=== PATIENT | female | born 1975 | race Asian ===

== ENCOUNTER 2023-12-19 20:08 | Outpatient (CLI) | payer OTHER | END 2023-12-19 23:59 | disposition critical access hospital (66) | LOC: EMS 20:08 | DX: R55 Syncope and collapse (principal) | CPT/HCPCS: A0425; A0427 ==

== ENCOUNTER 2023-12-19 20:48 | Emergency (ER) | payer OTHER ==
--- NOTE | 2023-12-19 20:48 | ED Physician Documentation ---
PD HPI SYNCOPE - Stated complaint Stated Complaint: SYNCOPE - History obtained from History obtained from: Patient, Family (spouse), EMS - History of Present Illness Witnessed: Witnessed - Additional information Additional information: AKIRA. HPI from EMS, patient, patient's spouse was in the ED at patient's bedside. Patient presents due to syncopal episode. Patient was seated at a table next to her at a local event when she had sudden onset of feeling unwell and nauseous. She then very rapidly developed visual changes Which she describes as everything appearing shades of yellow this was followed by generalized weakness, causing her to lean to her left side her was seated and thus he was able to keep her propped up. However, he says that, although slow to respond, she was answering questions appropriately. At that point, the patient and her decided to walk her outside, with much assistance, she was able to do so. Upon getting to a bench where the helped by her down, he noticed LOC lasting 3 to 5 seconds with generalized shaking. After no more than 5 seconds, she was again responding and, now that she was lying supine on the bench, rapidly returned to her baseline mental status. At no point did she have chest pain, palpitations. During this episode, she did have a brief period of generalized abdominal cramping. At this time, she says "I feel great". Her only symptoms at this time are mild generalized headache, mild "stiff neck" (per patient). She is otherwise asymptomatic. She has had similar episodes before bleeding to outpatient cardiac monitoring; per patient and 's description, it sounds like there were no diagnostic findings on that period of cardiac monitoring. Review of Systems Eyes: reports: Other (visual changes (color changes as per HPI)) Cardiac: reports: Reviewed and negative Respiratory: reports: Dyspnea (brief period of dyspnea during event, resolved) GI: reports: Abdominal Pain (brief period of abdominal cramping). denies: Nausea, Vomiting, Constipation, Diarrhea : denies: Now EGA Neurologic: reports: Generalized weakness, Syncope, Headache, LOC. denies: Focal weakness, Numbness, Head injury PD PAST MEDICAL HISTORY - Past Medical History Past Medical History: Yes [employer]: Breast cancer - Present Medications Home Medications: Ambulatory Orders Medication Instructions Recorded Confirmed No Known Home Medications 12/19/23 12/19/23 - Allergies Allergies/Adverse Reactions: Allergies Allergy/AdvReac Type Severity Reaction Status Date / Time unknown cancer med Allergy Unknown Uncoded 12/19/23 20:59 PD ED PE NORMAL - Vitals Vital signs reviewed: Yes - General General: Alert and oriented X 3, No acute distress, Well developed/nourished - HEENT HEENT: PERRL, EOMI - Neck Neck: Supple, no meningeal sign - Cardiac Cardiac: RRR, No murmur, No gallop, No rub - Respiratory Respiratory: No respiratory distress, Clear bilaterally - Abdomen Abdomen: Soft, Non tender - Neuro Neuro: Alert and oriented X 3, electrical assembler 2-12 intact, No motor deficit, No sensory deficit, Normal speech Eye Opening: Spontaneous Motor: Obeys Commands Verbal: Oriented GCS Score: 15 Results - Vitals Vitals: Vital Signs - 24 hr 12/19/23 12/19/23 20:50 23:04 Temperature 36.9 C Heart Rate 78 77 Respiratory 16 16 Rate Blood Pressure 123/71 121/86 H O2 Saturation 98 99 Oxygen O2 Source Room air - EKG (time done) No standard instances EKG releavant findings:: EKG personally interpreted by author of this note. Relevant findings are: Rate: Rate (enter#) (72) Rhythm: NSR [place]: Normal Intervals: Normal CA QRS: Normal Ischemia: Normal ST segments - Labs Labs: Laboratory Tests 12/19/23 12/19/23 12/19/23 21:12 21:12 21:40 WBC 9.2 RBC 4.91 Hgb 13.0 Hct 41.4 MCV 84.3 MCH 26.5 L MCHC 31.4 L RDW 12.5 Plt Count 308 MPV 8.5 Neut # (Auto) 6.2 Lymph # (Auto) 2.3 [place] # (Auto) 0.5 Eos # (Auto) 0.2 Baso # (Auto) 0.0 Absolute Nucleated RBC 0.00 Nucleated RBC % 0.0 Sodium 137 Potassium 3.8 Chloride 106 Carbon Dioxide 24 Anion Gap 7.0 BUN 18 Creatinine 0.7 Estimated GFR (MDRD) 89 Glucose 133 H Calcium 8.7 Total Bilirubin 0.2 AST 31 ALT 55 Alkaline Phosphatase 60 Troponin I High Sens < 2.3 L Total Protein 6.4 Albumin 3.9 Globulin 2.5 Albumin/Globulin Ratio 1.6 Lipase 38 Urine Color YELLOW Urine Clarity HAZY Urine pH 6.0 Ur Specific [place] >=1.030 H Urine Protein NEGATIVE Urine Glucose (UA) NEGATIVE Urine Ketones 15 H Urine Occult Blood MODERATE H Urine Nitrite NEGATIVE Urine Bilirubin NEGATIVE Urine Urobilinogen 0.2 (NORMAL) Ur Leukocyte Esterase NEGATIVE Urine RBC 6-10 H Urine WBC 0-3 Ur Squamous Epith Cells MOD Squamous H Urine Bacteria Few Urine Mucus Few Strands Ur Microscopic Review INDICATED Urine Culture Comments NOT INDICATED Urine HCG, Qual NEGATIVE - Rads (name of study) chest xray Relevant Findings:: Prelim report reviewed, See rad report PD Medical Decision Making - ED course Complexity details: reviewed results, re-evaluated patient, considered di fferential, d/w patient ED course: No concerning nor diagnostic findings on CBC, ER abdominal panel, UA. hs-cTn negative (<2.3). Unremarkable EKG, CXR. VSS and asymptomatic throughout ED stay. Etiology of patient's syncopal episode is not apparent at this time. Results d/w patient, return precautions reviewed, advised to seek follow up with PCP next available appointment for reevaluation. Departure - Departure Disposition: 01 Home, Self Care Clinical Impression: Syncope Condition: Good Instructions: ED Fainting Unkn Cause Comments: There were no concerning nor diagnostic findings on tonight's test, including the EKG, chest x-ray, and blood tests. Your urinalysis was also unremarkable except for small amount of blood (consistent with menstruation). The cause of your syncope is not apparent at this time. As we discussed, I recommend that you contact your primary care provider's office when they next open to arrange for the next available appointment for follow-up/reevaluation. Forms: PCP List Discharge Date/Time: 12/19/23 23:04
[2023-12-19 21:22] LABS: BASOPHILS % (AUTO) 0.4 %; EOSINOPHILS # (AUTO) 0.2 10^3/uL (0.0-0.7); EOSINOPHILS % (AUTO) 1.9 %; HCT - HEMATOCRIT 41.4 % (37.0-47.0); LYMPHOCYTES # (AUTO) 2.3 10^3/uL (1.5-3.5); LYMPHOCYTES % (AUTO) 24.6 %; MEAN CORPUSCULAR HEMOGLOBIN 26.5 pg (27.0-31.0); MEAN CORPUSCULAR HGB CONC 31.4 g/dL (32.0-36.0); MEAN CORPUSCULAR VOLUME 84.3 fL (81.0-99.0); MEAN PLATELET VOLUME 8.5 fL (7.9-10.8); MONOCYTES # (AUTO) 0.5 10^3/uL (0.0-1.0); MONOCYTES % (AUTO) 5.7 %; NEUTROPHILS # (AUTO) 6.2 10^3/uL (1.5-6.6); NEUTROPHILS % (AUTO) 67.1 %; PLT - PLATELET COUNT 308 10^3/uL (130-450); RED BLOOD COUNT 4.91 10^6/uL (4.20-5.40); RED CELL DISTRIBUTION WIDTH 12.5 % (12.0-15.0); WHITE BLOOD COUNT 9.2 x10^3/uL (4.8-10.8)
[2023-12-19 21:40] LABS: ALBUMIN 3.9 g/dL (3.2-5.5); ALBUMIN/GLOBULIN RATIO 1.6 (1.0-2.2); ALKALINE PHOSPHATASE 60 IU/L (42-121); ALT ALANINE AMINOTRANSFERASE 55 IU/L (10-60); AST ASPARTATE AMINOTRANSFERASE 31 IU/L (10-42); BILIRUBIN,TOTAL 0.2 mg/dL (0.2-1.0); BUN - BLOOD UREA NITROGEN 18 mg/dL (6-20); CALCIUM 8.7 mg/dL (8.5-10.3); CARBON DIOXIDE - CO2 24 mmol/L (21-32); CHLORIDE 106 mmol/L (101-111); CREATININE 0.7 mg/dL (0.6-1.3); GFR - MDRD 89 (>89); GLUCOSE 133 mg/dL (74-104); POTASSIUM 3.8 mmol/L (3.5-4.5); SODIUM 137 mmol/L (135-145); TOTAL PROTEIN 6.4 g/dL (6.4-8.9)
[2023-12-19] MEDS: SODIUM CHLORIDE 0.9% 1,000 ML IV STA (21:40)
[2023-12-19 21:42] LABS: TROPONIN I HIGH SENSITIVITY < 2.3 ng/L (2.3-14.8)
--- NOTE | 2023-12-19 21:43 | XRAY Report ---
PROCEDURE: Chest 2V INDICATIONS: syncope TECHNIQUE: 2 views of the chest were acquired. COMPARISON: None. FINDINGS: Surgical changes and devices: Surgical clips overlie the left hemithorax and axilla. Lungs and pleura: No pleural effusions or pneumothorax. Lungs are clear. Mediastinum: Mediastinal contours appear normal. Heart size is normal. Bones and chest wall: No suspicious bony lesions. Overlying soft tissues appear unremarkable. IMPRESSION: No acute cardiopulmonary process. Reviewed by: Charline Manley MD, PhD on 12/19/2023 9:42 PM PDT Approved by: Charline Manley MD, PhD on 12/19/2023 9:42 PM PDT Station ID: [id number]
[2023-12-19 21:50] LABS: BILIRUBIN,URINE NEGATIVE (NEGATIVE); GLUCOSE, URINE (UA) NEGATIVE (NEGATIVE); KETONES,URINE (UA) 15 mg/dL (NEGATIVE); LEUKOCYTE ESTERASE, URINE NEGATIVE (NEGATIVE); NITRITE,URINE NEGATIVE (NEGATIVE); OCCULT BLOOD,URINE MODERATE (NEGATIVE); PROTEIN,URINE NEGATIVE (NEGATIVE); UROBILINOGEN,URINE 0.2 (NORMAL) E.U./dL (NORMAL)
[2023-12-19 21:51] LABS: HCG UR QUAL NEGATIVE
[2023-12-19 21:52] LABS: CLARITY,URINE HAZY (CLEAR)
[2023-12-19 21:59] LABS: BACTERIA,URINE Few /HPF (None Seen); MUCUS,URINE Few Strands; SQUAMOUS EPITHELIAL CELL,UR MOD Squamous (<= Few); WBC,URINE 0-3 /HPF (0-5)
[2023-12-19 22:09] LABS: LIPASE 38 U/L (11-82)
[2023-12-19 23:08] VITALS: BP 121/86; O2SAT 99
== END 2023-12-19 23:04 | disposition home or self-care (01) ==
LOC: EDBD → ED 20:48
DX: R55 Syncope and collapse (principal); Z32.02 Encounter for pregnancy test, result negative
CPT/HCPCS: 36415; 80053; 81001; 81003; 81025; 83690; 84484; 85025; 87086; 99283; 99284